=== PATIENT | female | born 1990 | race Two or more races ===

== ENCOUNTER 2025-01-10 18:14 | Emergency (ER) | payer MEDICAID, OTHER ==
[~2025-01-10] VITALS: Ht 165.1 cm; Wt 73.0 kg
[2025-01-10 18:21] VITALS: BP 151/105; RESP 18; O2SAT 100
[2025-01-10 18:38] VITALS: PULSE 119
--- NOTE | 2025-01-10 18:40 | ECG ---
[facility] Test Date: 2025-01-10 Test Time: 18:38:21 Pat Name: KWESI ALARCON Department: ER Room: Gender: F Machine Fitter: MAGO : 1990 Requested By: MAGGY ISABEL Order Number: [id number] Reading MD: Measurements Intervals Union Rate: 119 P: 67 TX: 93 QRS: 97 QRSD: 89 T: 2 QT: 334 QTc: 470 Interpretive Statements Sinus tachycardia LAE, consider biatrial enlargement Consider right ventricular hypertrophy Baseline wander in lead(s) V4 Please click the below link to view image of tracing.
--- NOTE | 2025-01-10 18:49 | ED.PDOC ---
Musculoskeletal HPI Comments HPI: Poor Historian. 34 y.o female presents to the ED for a chief complaint of right lower back pain. Denies any fall or trauma. Patient is also here for evaluation of the left lower extremity swelling and x 2 weeks s/p spider bite. Status post completion of course of antibiotics. Patient reports no recent falls or back injuries. Patient mentions taking antibiotics for spider bite on the left anterior lewis that was prescribed at another hospital but after finishing the course, she developed intermittent swelling. Patient is non compliant with HTN medication. Patient is a tobacco smoker. Denies use of drugs. Vitals BP: 147/101 HR: 118 Temp: 98 RR: SPO2: 100% RA Past medical history: HTN Past surgical history: Tubal ligation Allergies: Denies REVIEW OF SYSTEMS: CONSTITUTIONAL: Denies acute: fever, diaphoresis, chills, generalized weakness. HEAD: Denies acute: headache, photophobia Eyes: Denies acute: Double vision, vision loss, eye pain, eye discharge. EARS: Denies acute: tinnitus, hearing loss, ear discharge, ear pain, THROAT: Denies acute: sore throat, swelling, difficulty swallowing , pain with swallowing, change in voice. NECK: Denies acute: neck pain, neck swelling, stiff neck. HEART: Denies acute : chest pain, palpitations, LUNGS: Denies acute: SOB, wheezing, cough, hemoptysis ABDOMEN: Denies acute: abdominal pain, Nausea, Vomiting, diarrhea, melena , hematemesis, hematochezia SKIN: Denies acute: rash, redness, lesions, itchiness. EXTREMITIES: Denies acute: calf pain, numbness, tingling, weakness, Neuro: Denies acute: focal neurological deficit, motor or sensory focal neurological deficit, tremors, seizure like activity, confusion, dizziness, change in mental status, loss of bowel or bladder function, cauda equina like symptoms. : Denies acute: dysuria, hematuria, flank pain, increase in urinary frequency. PSYCH: Denies acute: hallucination, suicidal ideation, homicidal ideation. FEMALE: Denies acute: abnormal vaginal bleeding, foul odor, unusual discharge. PHYSICAL EXAM: General: no acute distress, awake and alert. Head: normocephalic, atraumatic. Neck: supple, trachea is midline, no swelling. Throat: Normal phonation. Eyes:, no erythema, no purulent discharge, no proptosis, no icterus. Heart: regular tachycardic,, no significant murmur appreciated. Lungs: no apparent respiratory distress, Able to speak in full sentences. No wheezing, no rhonchi, no crackles. No stridors Clear to auscultation bilaterally. Abdomen: non tender to palpation, non distended, soft, no guarding, no rebound, + bowel sounds. Neuro: Awake, Alert, oriented to name, self, situation, follows commands GCS=15. Speech is normal. Skin: no petechia, no purpura, no cyanosis, non-pale, not jaundice. Right Lower extremity: --1/4 - Pitting edema no deformity, no focal swelling, no calf TTP. Patient is neurovascularly intact in the affected extremity. Motor and sensory are present. Makes eye contact. moves all four extremities. Face: no apparent facial droop. Pedal pulses are palpable. 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 Was a procedure done?: No Differential Diagnosis EXT Differential Diagnosis: Cellulitis, CHF, Deep Vein Thrombosis, Gout, Strain, Other (Leg swellingDdx include but not limited to DVT, ischemic limb, pitting edema, volume overload, CHF, cellulitis, hematoma, compartment syndrome, dependent edema, venous stasis.) X-Ray, Labs, Meds, VS Vital Signs Date Time Temp Pulse Resp B/P (MAP) Pulse Ox O2 Delivery O2 Flow Rate FiO2 01/10/25 18:38 119 01/10/25 18:21 98.6 118 18 147/101 (116) 100 151/105 (120) Lab Test 01/10/25 18:38 Range/Units White Blood Count 9.6 4.4-10.8 10^3/uL Red Blood Count 4.38 4.0-5.20 10^6/uL Hemoglobin 13.5 12.2-16.2 g/dL Hematocrit 39.4 36.0-46.0 % Mean Corpuscular Volume 90.0 80.0-100.0 fL Mean Corpuscular Hemoglobin 30.7 28.0-32.0 pg Mean Corpuscular Hemoglobin Concent 34.1 32.0-36.0 g/dL Red Cell Distribution Width 13.9 11.8-14.3 % Platelet Count 265 140-450 10^3/uL Mean Platelet Volume 8.1 6.9-10.8 fL Neutrophils (%) (Auto) 56.8 37.0-80.0 % Lymphocytes (%) (Auto) 34.7 10.0-50.0 % Monocytes (%) (Auto) 5.3 0.0-12.0 % Eosinophils (%) (Auto) 2.5 0.0-7.0 % Basophils (%) (Auto) 0.7 0.0-2.0 % Neutrophils # (Auto) 5.5 1.6-8.6 10 ^3/uL Lymphocytes # (Auto) 3.3 0.4-5.4 10 ^3/uL Monocytes # (Auto) 0.5 0-1.3 10 ^3/uL Eosinophils # (Auto) 0.2 0-0.8 10 ^3/uL Basophils # (Auto) 0.1 0-0.2 10 ^3/uL Nucleated Red Blood Cells 0.1 % Erythrocyte Sedimentation Rate 14 0-20 mm/hr D-Dimer, Quantitative 0.44 0.0-0.49 mg/L FEU Sodium Level 138 136-145 mmol/L Potassium Level 3.9 3.5-5.1 mmol/L Chloride Level 103 98-107 mmol/L Carbon Dioxide Level 24 20-31 mmol/L Anion Gap 11 5-15 Blood Urea Nitrogen 9 9-23 mg/dL Creatinine 0.80 0.550-1.02 mg/dL Glomerular Filtration Rate Calc 100 >90 mL/min BUN/Creatinine Ratio 11.3 10.0-20.0 Serum Glucose 81 74-106 mg/dL Lactic Acid Level 1.6 0.4-2.0 mmol/L Calcium Level 9.8 8.7-10.4 mg/dL Magnesium Level 1.9 1.6-2.6 mg/dL Total Bilirubin 0.4 0.2-1.0 mg/dL Aspartate Amino Transferase (AST) 22 13-40 U/L Alanine Aminotransferase (ALT) 16 7-40 U/L Alkaline Phosphatase 75 46-116 U/L Troponin I High Sensitivity < 3 L </=34 ng/L C-Reactive Protein High Sensitivity 0.38 <1.0 mg/dL B-Type Natriuretic Peptide 24.14 0-100 pg/mL Total Protein 7.2 5.7-8.2 g/dL Albumin 4.5 3.2-4.8 g/dL Time of 1ST Reevaluation: 18:45 Reevaluation 1ST: Unchanged Patient Education/Counseling: Diagnosis, Treatment Family Education/Counseling: No Family Present Comments Patient eloped You were unable to find the patient for diagnostic tests and ultrasound. Departure 1 Departure Time of Disposition: 21:18 Impression: Primary Impression: Left leg swelling Additional Impressions: Lumbosacral pain Tachycardia Eloped from emergency department Disposition: 07 LEFT AWOL/ELOPED Condition: Other Additional Instructions: Patient eloped Discharged With: Self, Relative Critical Care Note Critical Care Time?: No I personally scribed for MAGGY ISABEL DO ([email or web address]) on 01/10/25 at 18:49. Electronically submitted by So Bella ([facility]). MAGGY ISABEL DO Jan 10, 2025 18:49
[2025-01-10 19:25] LABS: Basophils # (auto) 0.1 10 ^3/uL (0-0.2); Basophils % (auto) 0.7 % (0.0-2.0); Eosinophils # (auto) 0.2 10 ^3/uL (0-0.8); Eosinophils % (auto) 2.5 % (0.0-7.0); Hematocrit 39.4 % (36.0-46.0); Hemoglobin 13.5 g/dL (12.2-16.2); Lymphocytes # (auto) 3.3 10 ^3/uL (0.4-5.4); Lymphocytes % (auto) 34.7 % (10.0-50.0); Mean Corpuscular Hemoglobin 30.7 pg (28.0-32.0); Mean Corpuscular Hgb Conc. 34.1 g/dL (32.0-36.0); Monocytes # (auto) 0.5 10 ^3/uL (0-1.3); Monocytes % (auto) 5.3 % (0.0-12.0); Neutrophils # (auto) 5.5 10 ^3/uL (1.6-8.6); Neutrophils % (auto) 56.8 % (37.0-80.0); Nucleated Red Blood Cells % 0.1 %; Platelet Count (auto) 265 10^3/uL (140-450); Red Blood Cells 4.38 10^6/uL (4.0-5.20); Red Cell Distribution Width 13.9 % (11.8-14.3); White Blood Cell 9.6 10^3/uL (4.4-10.8)
[2025-01-10 19:46] LABS: Alanine Aminotransferase 16 U/L (7-40); Albumin 4.5 g/dL (3.2-4.8); Alkaline Phosphatase 75 U/L (46-116); Anion Gap 11 (5-15); Aspartate Aminotransferase 22 U/L (13-40); BUN/Creatinine Ratio 11.3 (10.0-20.0); Blood Urea Nitrogen 9 mg/dL (9-23); CRP High Sensitivity 0.38 mg/dL (<1.0); Calcium 9.8 mg/dL (8.7-10.4); Carbon Dioxide 24 mmol/L (20-31); Chloride 103 mmol/L (98-107); Glucose 81 mg/dL (74-106); Magnesium 1.9 mg/dL (1.6-2.6); Potassium 3.9 mmol/L (3.5-5.1); Sodium 138 mmol/L (136-145); Total Protein 7.2 g/dL (5.7-8.2)
[2025-01-10 19:47] LABS: Bilirubin, Total 0.4 mg/dL (0.2-1.0)
[2025-01-10 19:57] LABS: Erythrocyte Sedimentation Rate 14 mm/hr (0-20)
== END 2025-01-10 21:15 | disposition left against medical advice (07) ==
LOC: ER 18:14
DX: M54.50 Low back pain, unspecified (principal); R22.42 Localized swelling, mass and lump, left lower limb; R00.0 Tachycardia, unspecified; I10 Essential (primary) hypertension; Z98.51 Tubal ligation status
CPT/HCPCS: 36415; 80053; 83605; 83735; 83880; 84484; 85025; 85379; 85652; 86141; 93005

== ENCOUNTER 2025-04-29 23:29 | Emergency (ER) | payer MEDICAID ==
[~2025-04-29] VITALS: Ht 165.1 cm; Wt 72.0 kg
[2025-04-29 23:29] VITALS: BP 168/88; PULSE 105; RESP 18; TEMP 98.5; O2SAT 99
[2025-04-29] MEDS ORDERED: diazePAM 5 MG TAB PO ONE (23:45)
[2025-04-29] MEDS ORDERED: KETOROLAC TROMETH 30 MG/ML 1ML VIAL IV ONE (23:45)
--- NOTE | 2025-04-29 23:50 | ED.PDOC ---
History of Present Illness HPI Comments 35-year-old female came to ER for back pains. Patient states she has been experiencing lower back pains for the past few months, pain will radiate to both her legs, causing her difficulty ambulating. States recently pain has worsened, causing difficulty even standing up. Chief Complaint: Back Pain Time Seen by MD: 23:49 Primary Care Provider: NONE Reviewed Notes: Nurses Notes Allergies: Coded Allergies: NO KNOWN ALLERGIES (Unverified , 01/10/25) Information Source: Patient Mode of Arrival: EMS Severity: Moderate Timing: Months Duration: Intermittent Review of Systems REVIEW OF SYSTEMS: No fever, no chills, or fatigue HEENT: No sore throat, no earache, no congestion, no neck pain. Cardiac: No chest pain. No palpitations. Lungs: No shortness of breath, no cough. GI: No nausea, no vomiting, no diarrhea, no constipation, no abdominal pain : No dysuria, frequency, or urgency. No hematuria. Musculoskeletal: No joint pain , no joint swelling, no extremity edema. (+) back pain, (+) leg pains Skin: No rash, no itching. Neuro: No headache, no dizziness, no weakness Vital Signs Vital Signs Date Time Temp Pulse Resp B/P (MAP) Pulse Ox O2 Delivery O2 Flow Rate FiO2 04/29/25 23:29 98.5 105 18 168/88 (114) 99 98.5 Physical Exam General: Awake, alert and oriented. No acute distress. Skin: Skin in warm, dry and intact. Appropriate color for ethnicity. Nailbeds pink with no cyanosis. HEENT: The head is normocephalic and atraumatic. Conjunctivae are clear without exudates or hemorrhage. Sclera is non-icteric. EOM are intact. No signs of nystagmus. Eyelids are normal in appearance without swelling or lesions. Oral mucosa is pink and moist Neck: The neck is supple with normal range of motion. No JVD. Cardiac: Heart rate and rhythm are normal. No murmurs, gallops, or rubs are auscultated. Respiratory: No signs of respiratory distress. Lung sounds are clear in all lobes bilaterally without rales, rhonchi, or wheezes. Abdominal: Abdomen is soft, non-tender without distention. Bowel sounds are present and normoactive in all four quadrants. Extremities: Upper and lower extremities are atraumatic in appearance without deformity or edema. Neurological: The patient is awake, alert and oriented to person, place, and time with normal speech. Speech is clear. There is no facial asymmetry. Psychiatric: Appropriate mood and affect. Good judgement and insight. No visual or auditory hallucinations. 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 Was a procedure done?: No Differential Dx Considerations may include: Musculoskeletal pain, lumbosacral strain, degenerative joint disease, sciatica X-Ray, Labs, Meds, VS Vital Signs Date Time Temp Pulse Resp B/P (MAP) Pulse Ox O2 Delivery O2 Flow Rate FiO2 04/29/25 23:29 98.5 105 18 168/88 (114) 99 98.5 Lab Test 04/29/25 23:46 Range/Units White Blood Count 7.8 4.4-10.8 10^3/uL Red Blood Count 4.55 4.0-5.20 10^6/uL Hemoglobin 13.2 12.2-16.2 g/dL Hematocrit 39.3 36.0-46.0 % Mean Corpuscular Volume 86.4 80.0-100.0 fL Mean Corpuscular Hemoglobin 29.0 28.0-32.0 pg Mean Corpuscular Hemoglobin Concent 33.6 32.0-36.0 g/dL Red Cell Distribution Width 14.3 11.8-14.3 % Platelet Count 289 140-450 10^3/uL Mean Platelet Volume 7.5 6.9-10.8 fL Neutrophils (%) (Auto) 66.1 37.0-80.0 % Lymphocytes (%) (Auto) 25.2 10.0-50.0 % Monocytes (%) (Auto) 6.1 0.0-12.0 % Eosinophils (%) (Auto) 1.9 0.0-7.0 % Basophils (%) (Auto) 0.7 0.0-2.0 % Neutrophils # (Auto) 5.2 1.6-8.6 10 ^3/uL Lymphocytes # (Auto) 2.0 0.4-5.4 10 ^3/uL Monocytes # (Auto) 0.5 0-1.3 10 ^3/uL Eosinophils # (Auto) 0.2 0-0.8 10 ^3/uL Basophils # (Auto) 0.1 0-0.2 10 ^3/uL Nucleated Red Blood Cells 0.0 % Sodium Level 140 136-145 mmol/L Potassium Level 4.1 3.5-5.1 mmol/L Chloride Level 106 98-107 mmol/L Carbon Dioxide Level 28 20-31 mmol/L Anion Gap 6 5-15 Blood Urea Nitrogen 9 9-23 mg/dL Creatinine 0.68 0.550-1.02 mg/dL Glomerular Filtration Rate Calc 117 >90 mL/min BUN/Creatinine Ratio 13.2 10.0-20.0 Serum Glucose 90 74-106 mg/dL Calcium Level 9.4 8.7-10.4 mg/dL Time of 1ST Reevaluation: 23:47 Reevaluation 1ST: Unchanged Patient Education/Counseling: Prognosis Family Education/Counseling: No Family Present SEPSIS Sepsis Screen Physician Orders Urinalysis (04/29/25 23:36) Test, Urine (04/29/25 23:36) Vital Signs Date Time Temp Pulse Resp B/P (MAP) Pulse Ox O2 Delivery O2 Flow Rate FiO2 04/29/25 23:29 98.5 105 18 168/88 (114) 99 98.5 Laboratory Tests Test 04/29/25 23:46 White Blood Count 7.8 10^3/uL (4.4-10.8) Departure 1 Departure Time of Disposition: 03:21 Impression: Primary Impression: Back pain Disposition: 07 LEFT AWOL/ELOPED Condition: Other Comments 35-year-old female with lower back pain Patient was seen and evaluated on arrival to the emergency department, discussed plan of care with the patient Patient eloped from the emergency department Critical Care Note Critical Care Time?: No Stability Stability form required: No Heart Score Heart Score: Heart Score Response (Comments) Value History N/A 0 EKG N/A 0 Age N/A 0 Risk Factors N/A 0 Troponin N/A 0 Total 0 I personally scribed for GUNNAR RICH MD ([email or web address]) on 04/29/25 at 23:50. Electronically submitted by Jonny Pitt ([facility]). GUNNAR RICH MD Apr 29, 2025 23:50
[2025-04-29 23:56] LABS: Basophils # (auto) 0.1 10 ^3/uL (0-0.2); Basophils % (auto) 0.7 % (0.0-2.0); Eosinophils # (auto) 0.2 10 ^3/uL (0-0.8); Eosinophils % (auto) 1.9 % (0.0-7.0); Hematocrit 39.3 % (36.0-46.0); Hemoglobin 13.2 g/dL (12.2-16.2); Lymphocytes % (auto) 25.2 % (10.0-50.0); Mean Corpuscular Hgb Conc. 33.6 g/dL (32.0-36.0); Mean Corpuscular Volume 86.4 fL (80.0-100.0); Monocytes # (auto) 0.5 10 ^3/uL (0-1.3); Monocytes % (auto) 6.1 % (0.0-12.0); Neutrophils # (auto) 5.2 10 ^3/uL (1.6-8.6); Neutrophils % (auto) 66.1 % (37.0-80.0); Platelet Count (auto) 289 10^3/uL (140-450); Red Blood Cells 4.55 10^6/uL (4.0-5.20); Red Cell Distribution Width 14.3 % (11.8-14.3); White Blood Cell 7.8 10^3/uL (4.4-10.8)
[2025-04-30 00:04] LABS: Chloride 106 mmol/L (98-107); Potassium 4.1 mmol/L (3.5-5.1); Sodium 140 mmol/L (136-145)
[2025-04-30 00:05] LABS: Anion Gap 6 (5-15); Carbon Dioxide 28 mmol/L (20-31)
[2025-04-30 00:06] LABS: Calcium 9.4 mg/dL (8.7-10.4)
[2025-04-30 00:11] LABS: BUN/Creatinine Ratio 13.2 (10.0-20.0); Glucose 90 mg/dL (74-106)
[2025-04-30 00:19] LABS: Blood Urea Nitrogen 9 mg/dL (9-23)
== END 2025-04-30 00:03 | disposition left against medical advice (07) ==
LOC: EDBD 23:29 → ER 23:32
DX: M54.50 Low back pain, unspecified (principal); I10 Essential (primary) hypertension; Z98.51 Tubal ligation status
CPT/HCPCS: 36415; 80048; 85025